=== PATIENT | female | born 1975 ===

== ENCOUNTER 2021-07-25 10:45 | Inpatient (IN) | payer OTHER ==
[~2021-07-25] VITALS: Ht 160 cm; Wt 71.7 kg
[2021-07-25] MEDS ORDERED: NAPROXEN375 MG PO (13:20)
[2021-07-25] MEDS ORDERED: KETO10TA2 PO (13:21)
== END 2021-07-29 10:29 | disposition home or self-care (01) | DRG 743 ==
LOC: O/R 07-28 07:10 → SURH 07-28 10:45 → OB/GYN 07-28 19:32 → SURH 07-28 20:45 → OB/GYN 07-29 10:29
PROVIDERS: Surgery; ADMIT Obstetrics & Gynecology Gynecologic Oncology; ATTEND Obstetrics & Gynecology Gynecologic Oncology
PROC: 07BC4ZZ Excision of Pelvis Lymphatic, Percutaneous Endoscopic Approach (ICD-10-PCS; 2021-07-28)
PROC: 0UT00ZZ Resection of Right Ovary, Open Approach (ICD-10-PCS; principal; 2021-07-28 20:45)
PROC: 0UT50ZZ Resection of Right Fallopian Tube, Open Approach (ICD-10-PCS; 2021-07-28 20:45)
DX: D27.0 Benign neoplasm of right ovary (principal); N83.11 Corpus luteum cyst of right ovary; N83.01 Follicular cyst of right ovary; D36.0 Benign neoplasm of lymph nodes